=== PATIENT | female | born 1990 | race Caucasian/White ===

== ENCOUNTER 2016-12-14 16:48 | Emergency (ER) | payer BC ==
[2016-12-14] MEDS ORDERED: diphenhydrAMINE HCL 50 MG/ML VIAL IM ONE (17:30)
[2016-12-14] MEDS ORDERED: KETOROLAC TROMETHAMINE 60 MG/2 ML VIAL IM ONE ×2 (17:30→17:34)
[2016-12-14] MEDS ORDERED: diphenhydrAMINE HCL 50 MG/ML VIAL ONE (17:34)
[2016-12-14 17:45] LABS: Hematocrit 40.5 % (37.0-47.0); Hemoglobin 14.1 gm/dL (12.5-16.0); Mean Cell Volume 87.7 fl (78-100); Mean Corpuscular Hemoglobin 30.5 pg (27-31); Mean Corpuscular Hgb Conc 34.8 g/dl (32-36); Mean Platelet Volume 9.3 fl (6.0-9.5); Neutrophil # 5.8 K/mm3 (1.3-6.0); Neutrophil % 66.3 % (42-75.0); Platelet Count 296 K/mm3 (150-450); Red Blood Count 4.62 M/mm3 (4.2-5.4); Red Cell Distribution Width 11.6 % (11.5-14.0); White Blood Count 8.7 K/mm3 (4.0-10.5)
[2016-12-14 17:56] LABS: Anion Gap 14.1 mmol/L (6.8-13.8); BUN/Creatinine Ratio 16.2 (9.0-21.6); Ca. Corrected For Albumin 9.2 mg/dL (8.4-10.2); Calcium * 9.5 mg/dL (7.9-10.9); Potassium 4.1 mmol/L (3.4-4.6); Total Protein 8.2 gm/dL (6.2-8.2)
--- NOTE | 2016-12-14 17:57 | ERNOTE ---
Medical Problem HPI - Narrative Date of Service: 12/14/16 - General Chief Complaint: General Assessment Time Seen by Provider: 12/14/16 17:21 Source: patient Exam Limitations: no limitations - Immun/Allergies/Home Medications Immunizations: IMMUNIZATION HX History of Influenza Vaccine No Hx Pneumococcal Vaccination No Allergies/Adverse Reactions: Allergies penicillin G Allergy (Verified 12/14/16 17:20) Swelling (Other) Penicillins Allergy (Verified 12/14/16 17:20) Swelling (Other) Home Medications: HOME MEDICATIONS Metoprolol Succinate [Toprol Xl] 50 mg PO DAILY 12/14/16 [Last Taken Unknown] Naproxen [Naprosyn] 500 mg PO BID PRN #60 tab 12/14/16 [Last Taken Unknown] - History of Present History Narrative: Pt. comes in with c/o 2 day history of malaise and head pressure. Pt. denies any SOB, CP, NVD, fever or chills but states that her neck started to hurt this morning when she woke up and is only worsening with movement and does not alleviate despite resting. Review of Systems - Review of Systems Constitutional: Present: fatigue, malaise. Absent: recent illness, fever, chills, weakness EYE: Present: no symptoms reported ENT: Present: no symptoms reported Respiratory: Present: no symptoms reported. Absent: shortness of breath, cough , wheezing Cardiology: Present: no symptoms reported. Absent: chest pain, palpitations, edema Gastrointestinal/Abdominal: Present: no symptoms reported. Absent: nausea, vomiting, diarrhea Musculoskeletal: Present: neck pain. Absent: back pain, joint pain Skin: Present: no symptoms reported Neurological: Present: no symptoms reported. Absent: headache, dizziness/light- headedness, numbness, tingling All Other Systems: All systems neg except as marked - Patient's Past Medical History Patient History - Medical: Anemia, ADHD, Depression Patient History - Cardiac/Respiratory: Asthma - Family History Brother Family History - Medical: Other Grandmother-Paternal Family History - Medical: Diabetes Type 2 Mother Family History - Medical: Diabetes Type 2 Family History - Cardiac/Respiratory: Hypertension - Social History Living Situations: home Abuse History: No History of abuse Psych History: Hx of Depression Alcohol Use: none Drug Use: none - Immunizations Hx Pneumococcal Vaccination: No History of Influenza Vaccine: No Physical Exam - Physical Exam General Appearance: Present: wd/wn, alert, no apparent distress Head Exam: Present: normal inspection, no evidence of injury Eye Exam: Normal inspection: bilateral, PERRL: bilateral, EOMI: bilateral Ears, Nose, Throat: Present: normal ENT inspection, normal pharynx Neck: Present: normal inspection, nontender. Absent: lymphadenopathy (R), lymphadenopathy (L), tender lateral, tender posterior midline Respiratory: Present: no respiratory distress, normal breath sounds, no accessory muscle use, chest nontender, lungs clear Cardiovascular/Chest: Present: regular rate, rhythm, no murmur, normal peripheral pulses Gastrointestinal/Abdominal: Present: normal bowel sounds Rectal Exam: Present: nontender Back Exam: Present: normal inspection, normal range of motion, no CVA tenderness , no vertebral tenderness Extremity Exam: Present: normal inspection, non-tender, normal range of motion, no edema Neurological Exam: Present: alert, oriented, normal mood/affect, no motor/ sensory deficits Skin Exam: Present: normal color, warm/dry. Absent: pallor, skin rash ED Progress - Date and Time Seen: Date and Time: 12/14/16 17:53 Pt. with negative exam and no lower back pain and no fever...feel that this is not likely meningitis but is musculoskelatal pain. - Results and Orders Patient's Lab Results:: I have reviewed the patient's lab results. - Vital Signs Patient's Vital Signs:: I have reviewed the patient's vital signs. Vital Signs: Vital Signs 12/14/16 17:16 Temperature 36.5 C Pulse Rate 97 Respiratory 12 Rate Blood Pressure 151/101 O2 Sat by Pulse 99 Oximetry - Progress/Reassessment Chief Complaint: General Assessment Departure Clinical Impression: Torticollis - Departure Disposition: Home self-care Condition: Good Instructions: Acute Torticollis Additional Instructions: Please follow up with primary provider in 2-3 days and increase fluid intake Referrals: Carola Engel MD [Primary Care Provider] - Prescriptions: Naproxen [Naprosyn] 500 mg PO BID PRN #60 tab PRN Reason: Pain
[2016-12-14 18:18] LABS: Bilirubin, Total 0.3 mg/dL (0.0-1.1)
[2016-12-14 19:22] VITALS: BP 136/83
== END 2016-12-14 18:55 | disposition home or self-care (01) ==
LOC: ER 16:48
DX: M43.6 Torticollis (principal)